=== PATIENT | male | born 1985 | race Caucasian/White ===

== ENCOUNTER 2022-07-10 20:57 | Inpatient (IN) ==
[2022-07-10 22:03] LABS: Basophils % 0.1 % (0.0-0.8); Immature Granulocytes % 0.4 %; Immature Granulocytes Absolute 0.07 #; Lymphocytes # 1.5 10*3/uL (1.4-4.0); Lymphocytes % 8.8 % (21.2-54.2); Mean Corpuscular HGB Conc 34.1 GM/DL (32-36); Mean Corpuscular Volume 90.9 FL (87-102); Mean Platelet Volume 10.5 FL (9.6-12.0); Monocytes # 0.9 10*3/uL (0.11-0.8); Neutrophils % 85.7 % (38.7-73.9); Platelet Count 335 T/CUMM (130-400); Red Blood Count 4.84 MC/CUMM (3.8-5.5); Red Cell Distribution Width 12.6 % (9.3-17.3); White Blood Count 17.3 T/CUMM (4-12)
[2022-07-10] MEDS ORDERED: KETOROLAC 30 MG/1 ML VIAL ONE (22:20)
[2022-07-10 22:22] LABS: Albumin 3.9 G/DL (3.4-5.0); Bilirubin,Total 1.2 MG/DL (0.20-1.00); Calcium 8.7 MG/DL (8.5-10.1); Osmolality,Calculated 284.4 MOS/KG (273-304); Potassium 4.9 MMOL/L (3.5-5.1); Total Protein 7.4 G/DL (6.4-8.2)
[2022-07-10] MEDS ORDERED: KETOROLAC 30 MG/1 ML VIAL IV STA (22:22)
[2022-07-10] MEDS ORDERED: ACETAMINOPHEN 325 MG TABLET PO PRN (22:43)
[2022-07-10] MEDS ORDERED: ONDANSETRON 4 MG/2 ML VIAL IV PRN (22:43)
[2022-07-10] MEDS ORDERED: hydrALAZINE 20 MG/1 ML VIAL IV PRN (22:43)
[2022-07-10] MEDS ORDERED: ALUMINUM/MAGNES/SIMETH MAX STR 30 ML UDCUP PO PRN (22:43)
[2022-07-10] MEDS ORDERED: NICOTINE 21 MG/24 HR PATCH TRANSDERM PRN (22:43)
[2022-07-10] MEDS ORDERED: MORPHINE 2 MG/1 ML SYRINGE IV PRN (22:50)
[2022-07-11] MEDS: SODIUM CHLORIDE 0.9% 1,000 ML IV SCH ×2 (00:30→16:19)
[2022-07-11 04:18] LABS: Bilirubin,Urine Negative (Negative); Blood, Urine Moderate mg/dL (Negative); Glucose,Urine (UA) Negative (Negative); Ketones,Urine Negative (Negative); Nitrite,Urine Negative (Negative); Protein,Urine 30 mg/dL (Negative); Urine Appearance Clear (Clear); Urine Color Yellow (Yellow); Urine Specific Gravity >= 1.030 (1.001-1.035); Urine Urobilinogen 0.2 eU/dL (<2.0); Urine pH 5.5 (4.5-8.0)
[2022-07-11 04:20] LABS: Mucus,Urine Occasional /LPF (Occasional)
[2022-07-11 06:10] LABS: Basophils # 0.1 10*3/uL (0.0-0.2); Basophils % 0.3 % (0.0-0.8); Eosinophils # 0.1 10*3/uL (0.0-0.87); Eosinophils % 0.4 % (0.00-10.9); Hematocrit 41.2 VOL% (42.0-52.0); Hemoglobin 13.9 GM/DL (14.0-18.0); Immature Granulocytes % 0.4 %; Immature Granulocytes Absolute 0.06 #; Lymphocytes # 2.3 10*3/uL (1.4-4.0); Lymphocytes % 15.4 % (21.2-54.2); Mean Corpuscular HGB Conc 33.7 GM/DL (32-36); Mean Corpuscular Volume 93.2 FL (87-102); Mean Platelet Volume 10.5 FL (9.6-12.0); Monocytes # 1.2 10*3/uL (0.11-0.8); Monocytes % 8.3 % (1.7-12.7); Neutrophils % 75.2 % (38.7-73.9); Platelet Count 273 T/CUMM (130-400); Red Blood Count 4.42 MC/CUMM (3.8-5.5); Red Cell Distribution Width 12.7 % (9.3-17.3); White Blood Count 14.8 T/CUMM (4-12)
[2022-07-11 06:21] LABS: PT Patient Result 10.8 SECS (10.1-12.1); Partial Thromboplastin Time 25.9 SECS (23.7-32.9)
[2022-07-11 06:34] LABS: Calcium 8.2 MG/DL (8.5-10.1); Osmolality,Calculated 284.3 MOS/KG (273-304)
[2022-07-11] MEDS ORDERED: cefTRIAXone 1,000 MG in SODIUM CHLORIDE 0.9% 100 ML IV ONE (08:00)
[2022-07-11] MEDS: PANTOPRAZOLE 40 MG TABLET PO SCH (08:43)
[2022-07-11] MEDS: DOCUSATE SODIUM 100 MG CAPSULE PO SCH ×2 (08:43→20:09)
[2022-07-11] MEDS ORDERED: ONDANSETRON 4 MG/2 ML VIAL ONE (10:11)
[2022-07-11] MEDS ORDERED: MIDAZOLAM 2 MG/2 ML VIAL ONE (10:11)
[2022-07-11] MEDS ORDERED: fentaNYL 100 MCG/2 ML VIAL ONE (10:11)
[2022-07-11] MEDS ORDERED: propofoL 200 MG/20 ML VIAL IV ONE (10:11)
[2022-07-11] MEDS ORDERED: LIDOCAINE 2% 5 ML VIAL ONE (10:11)
[2022-07-12] MEDS: SODIUM CHLORIDE 0.9% 1,000 ML IV SCH ×2 (03:47→08:15)
[2022-07-12 06:00] LABS: Basophils % 0.4 % (0.0-0.8); Eosinophils # 0.1 10*3/uL (0.0-0.87); Eosinophils % 0.7 % (0.00-10.9); Hematocrit 41.3 VOL% (42.0-52.0); Hemoglobin 13.6 GM/DL (14.0-18.0); Immature Granulocytes % 0.4 %; Immature Granulocytes Absolute 0.04 #; Lymphocytes % 18.8 % (21.2-54.2); Mean Corpuscular HGB Conc 32.9 GM/DL (32-36); Mean Platelet Volume 10.6 FL (9.6-12.0); Monocytes # 0.6 10*3/uL (0.11-0.8); Monocytes % 5.2 % (1.7-12.7); Neutrophils % 74.5 % (38.7-73.9); Platelet Count 266 T/CUMM (130-400); Red Blood Count 4.49 MC/CUMM (3.8-5.5); Red Cell Distribution Width 12.7 % (9.3-17.3); White Blood Count 10.7 T/CUMM (4-12)
[2022-07-12 06:19] LABS: Calcium 8.4 MG/DL (8.5-10.1); Osmolality,Calculated 283.3 MOS/KG (273-304); Potassium 4.1 MMOL/L (3.5-5.1)
[2022-07-12 08:22] VITALS: BP 133/80
[2022-07-12] MEDS: DOCUSATE SODIUM 100 MG CAPSULE PO SCH (08:27)
[2022-07-12] MEDS: PANTOPRAZOLE 40 MG TABLET PO SCH (08:27)
== END 2022-07-12 10:00 | disposition home or self-care (01) | DRG 661 ==
LOC: N.ED 20:57 → N.EDINP 22:43 → N.3E 23:35
PROVIDERS: ADMIT Internal Medicine; ATTEND Internal Medicine